=== PATIENT | female | born 1940 | race Caucasian/White ===

== ENCOUNTER → 2017-01-28 | Outpatient (CLI) | payer MEDICARE, BC | LOC: MAMMO 08:53 | DX: Z12.31 Encounter for screening mammogram for malignant neoplasm of breast (principal) | CPT/HCPCS: G0202 ==

== ENCOUNTER → 2021-12-20 | Outpatient (CLI) | payer MEDICARE, BC | LOC: RAD 08:12 → MAMMO 08:30 | DX: Z78.0 Asymptomatic menopausal state (principal); Z13.820 Encounter for screening for osteoporosis; M85.80 Other specified disorders of bone density and structure, unspecified site; M81.0 Age-related osteoporosis without current pathological fracture ==

== ENCOUNTER 2024-04-06 07:19 | Emergency (ER) | payer MEDICARE, BC ==
[~2024-04-06] VITALS: Ht 147.3 cm; Wt 75.9 kg
[~2024-04-06 07:19] MED LIST: ACETAMINOPHEN-H1 TA2 PO; HCTZ 25MG25 MG PO; HYDROCHLOROTH12.5 M1 PO; LISINOPRIL10 MG PO; NAPROXEN500 MG PO; VERAPAMIL240 MG PO
[2024-04-06] MEDS ORDERED: DULOXETINE20 MG PO (07:42)
[2024-04-06] MEDS ORDERED: POTASSIUM CHLO20 ME4 PO (07:43)
[2024-04-06] MEDS ORDERED: FUROSEMIDE20 MG PO (07:43)
[2024-04-06] MEDS ORDERED: PRAVASTATIN SOD20 MG PO (07:43)
[2024-04-06] MEDS ORDERED: FLUTICASON0.05 MG/Ac NS (07:43)
[2024-04-06] MEDS ORDERED: PRILOSEC 20MG20 MG PO (07:44)
[2024-04-06 08:13] LABS: BASO # 0.03 K/mm3 (0.02-0.10); EOS # 0.06 K/mm3 (0.04-0.40); EOS % 0.6 % (1.0-5.0); HEMATOCRIT 47.1 % (37.0-47.0); HEMOGLOBIN 15.9 g/dL (12.5-16.0); LYMPH# 0.91 K/mm3 (1.50-4.00); MEAN CELL VOLUME 89 fl (78-100); MEAN CORPUSCULAR HEMOGLOBIN 30 pg (27-31); MEAN CORPUSCULAR HGB CONC 34 g/dL (33-37); MEAN PLATELET VOLUME 10.1 fl (7.4-10.4); MONO # 0.63 K/mm3 (0.20-0.80); NEU # 8.78 K/mm3 (1.40-6.50); PLATELET COUNT 201 K/mm3 (130-400); RED BLOOD COUNT 5.27 M/mm3 (4.10-5.30); RED CELL DISTRIBUTION WIDTH 12.8 % (11.5-14.5); WHITE BLOOD COUNT 10.5 K/mm3 (4.8-10.8)
[2024-04-06 08:18] LABS: ALBUMIN 4.4 g/dL (3.4-4.8); CALCIUM 10.7 mg/dL (8.3-10.5)
[2024-04-06 08:23] LABS: TOTAL BILIRUBIN 1.2 mg/dL (0.2-1.2)
[2024-04-06 08:36] LABS: TROPONIN-I 0.044 ng/mL (0.00-0.033)
[2024-04-06] MEDS ORDERED: Iodixanol-320 100 ML BOTTLE IV ONE (08:40)
[2024-04-06] MEDS ORDERED: NS 1,000 ML IV SCH (08:45)
[2024-04-06] MEDS ORDERED: fentaNYL 100 MCG/2 ML VIAL IV ONE (08:45)
[2024-04-06 09:47] LABS: PH-URINE 5.5 (5.0 - 8.0); URINE APPEARANCE CLEAR (CLEAR); URINE BILIRUBIN NEGATIVE (NEGATIVE); URINE BLOOD NEGATIVE (NEGATIVE); URINE COLOR YELLOW (YELLOW); URINE GLUCOSE NEGATIVE (NEGATIVE); URINE KETONE NEGATIVE (NEGATIVE); URINE LEUKOCYTE ESTERASE NEGATIVE (NEGATIVE); URINE NITRATE NEGATIVE (NEGATIVE); URINE PROTEIN(semi-quant) NEGATIVE (NEGATIVE)
[2024-04-06] MEDS ORDERED: cefTRIAXone 1 G in Water For Injection,Sterile 10 ML IV ONE (11:15)
[2024-04-06 11:40] VITALS: BP 127/79
== END 2024-04-06 11:40 | disposition short-term general hospital (02) ==
LOC: ED 07:19
PROVIDERS: Nurse Practitioner Family
DX: K37 Unspecified appendicitis (principal); I48.91 Unspecified atrial fibrillation; A41.9 Sepsis, unspecified organism
CPT/HCPCS: J0696; J3010; J7030; Q9967

== ENCOUNTER 2024-05-26 10:27 | Outpatient (RCR) | payer MEDICARE, BC ==
[~2024-05-26 10:27] MED LIST changes: +DULOXETINE20 MG PO; +FLUTICASON0.05 MG/Ac NS; +FUROSEMIDE20 MG PO; +POTASSIUM CHLO20 ME4 PO; +PRAVASTATIN SOD20 MG PO; +PRILOSEC 20MG20 MG PO
[2024-05-27] MEDS ORDERED: AMIODARONE200 MG PO (13:18)
[2024-05-27] MEDS ORDERED: ELIQUIS2.5 MG PO (13:18)
[2024-05-27] MEDS ORDERED: TORSEMIDE20 M1 PO (13:35)
[2024-05-27] MEDS ORDERED: PANTOPRAZOLE SO40 MG PO (13:36)
[2024-05-27] MEDS ORDERED: PREGABALIN50 MG PO (13:37)
[2024-06-03] MEDS ORDERED: WARFARIN SODIU2.5 MG PO (09:30)
[2024-06-03] MEDS ORDERED: ZOFRAN ODT4 MG PO (09:32)
[2024-06-03] MEDS ORDERED: ZYRTEC10 M3 PO (09:33)
[2024-06-03] MEDS ORDERED: VOLTAREN ARTHRI20 GM TP (09:34)
[2024-06-03] MEDS ORDERED: MIRALAX17 GM PO (09:37)
[2024-06-03] MEDS ORDERED: EMERGEN-C 500500 MG PO (09:40)
== END 2024-06-03 | disposition home or self-care (01) ==
LOC: PT
DX: K65.1 Peritoneal abscess (principal); J18.9 Pneumonia, unspecified organism; J96.00 Acute respiratory failure, unspecified whether with hypoxia or hypercapnia; Z98.890 Other specified postprocedural states

== ENCOUNTER 2024-05-27 12:14 | Emergency (ER) | payer MEDICARE, BC ==
[~2024-05-27] VITALS: Ht 144.8 cm; Wt 71.4 kg
[2024-05-27 13:02] LABS: BASO # 0.02 K/mm3 (0.02-0.10); EOS # 0.02 K/mm3 (0.04-0.40); EOS % 0.1 % (1.0-5.0); HEMATOCRIT 39.8 % (37.0-47.0); HEMOGLOBIN 12.1 g/dL (12.5-16.0); LYMPH# 1.34 K/mm3 (1.50-4.00); MEAN CELL VOLUME 96 fl (78-100); MEAN CORPUSCULAR HEMOGLOBIN 29 pg (27-31); MEAN CORPUSCULAR HGB CONC 30 g/dL (33-37); MEAN PLATELET VOLUME 11.2 fl (7.4-10.4); MONO # 0.72 K/mm3 (0.20-0.80); PLATELET COUNT 198 K/mm3 (130-400); RED BLOOD COUNT 4.16 M/mm3 (4.10-5.30); WHITE BLOOD COUNT 17.3 K/mm3 (4.8-10.8)
[2024-05-27 13:14] LABS: ALBUMIN 4.1 g/dL (3.4-4.8); TOTAL PROTEIN 7.6 g/dL (6.2-8.1)
[2024-05-27 13:16] LABS: CALCIUM 9.7 mg/dL (8.3-10.5); TOTAL BILIRUBIN 0.9 mg/dL (0.2-1.2)
[2024-05-27] MEDS ORDERED: ELIQUIS2.5 MG PO (13:18)
[2024-05-27] MEDS ORDERED: AMIODARONE200 MG PO (13:18)
[2024-05-27] MEDS ORDERED: Cefepime 2 G in Water For Injection,Sterile 20 ML IV ONE (13:30)
[2024-05-27] MEDS ORDERED: NS 1,000 ML IV SCH ×2 (13:30→14:15)
[2024-05-27 13:31] LABS: TROPONIN-I 0.067 ng/mL (0.00-0.033)
[2024-05-27] MEDS ORDERED: TORSEMIDE20 M1 PO (13:35)
[2024-05-27] MEDS ORDERED: PANTOPRAZOLE SO40 MG PO (13:36)
[2024-05-27] MEDS ORDERED: PREGABALIN50 MG PO (13:37)
[2024-05-27 13:52] LABS: URINE APPEARANCE SLIGHTLY CLOUDY (CLEAR); URINE COLOR YELLOW (YELLOW)
[2024-05-27 13:53] LABS: PH-URINE 5.5 (5.0 - 8.0); URINE BILIRUBIN NEGATIVE (NEGATIVE); URINE BLOOD NEGATIVE (NEGATIVE); URINE GLUCOSE NEGATIVE (NEGATIVE); URINE KETONE NEGATIVE (NEGATIVE); URINE LEUKOCYTE ESTERASE 1+ (NEGATIVE); URINE NITRATE NEGATIVE (NEGATIVE); URINE PROTEIN(semi-quant) TRACE (NEGATIVE); URINE WBC 16-30 /hpf (0-3)
[2024-05-27] MEDS ORDERED: Acetaminophen 500 MG TAB PO ONE (14:00)
[2024-05-27 17:00] VITALS: BP 109/97
== END 2024-05-27 17:10 | disposition short-term general hospital (02) ==
LOC: ED 12:14
PROVIDERS: Family Medicine
DX: A41.9 Sepsis, unspecified organism (principal); R65.20 Severe sepsis without septic shock; N17.9 Acute kidney failure, unspecified; N39.0 Urinary tract infection, site not specified; R51.9 Headache, unspecified; R10.32 Left lower quadrant pain; I48.91 Unspecified atrial fibrillation; R21 Rash and other nonspecific skin eruption; Z79.01 Long term (current) use of anticoagulants; Z88.0 Allergy status to penicillin; Z88.1 Allergy status to other antibiotic agents; Z92.89 Personal history of other medical treatment
CPT/HCPCS: J0692; J3370; J7030; J7050

== ENCOUNTER → 2024-06-03 | Outpatient (RCR) | payer MEDICARE, BC ==
[2024-06-02 10:20] VITALS: BP 169/85
[2024-06-02 11:15] VITALS: BP 158/84
--- NOTE | 2024-06-02 11:16 | NUR ---
PT HERE FOR OP IV ANTIBIOTICS X2 DAYS. WILL GO HOME TODAY WITH INT IN RT FOREARM. COVERED INT WITH ELASTINET. LEFT FACILITY PER WC WITH FAMILY
[~2024-06-03] VITALS: Ht 147.3 cm; Wt 71.4 kg
[~2024-06-03] MED LIST changes: +AMIODARONE200 MG PO; +ELIQUIS2.5 MG PO; +EMERGEN-C 500500 MG PO; +ERTAPENEM 0.5 GM IV SCH; +MIRALAX17 GM PO; +PANTOPRAZOLE SO40 MG PO; +PREGABALIN50 MG PO; +SODIUM CHLORIDE IV SCH; +TORSEMIDE20 M1 PO; +VOLTAREN ARTHRI20 GM TP; +WARFARIN SODIU2.5 MG PO; +ZOFRAN ODT4 MG PO; +ZYRTEC10 M3 PO; +[UNRECOGNIZED DRUG - OTHER] IV SCH
[2024-06-03 09:13] VITALS: BP 129/80
--- NOTE | 2024-06-03 09:27 | NUR ---
PT ARRIVED AMBULATORY WITH [facility] TODAY FOR OP IV ANTIBIOTIC INFUSION. HER INT IN RT FOREARM WAS LEAKING WHEN FLUSHED WITH NS PRIOR TO INFUSION. DC'D INT. STARTED #22 INT IN LEFT AC ON FIRST ATTEMPT. INFUSION STARTED.
[2024-06-03 10:03] VITALS: BP 130/80
--- NOTE | 2024-06-03 10:04 | NUR ---
PT JEM INFUSION WITHOUT ANY PROBLEMS. LEFT HOSPT AMBULATORY WITH [facility]ALKER.FAMILY DRIVING PT HOME
== END | disposition home or self-care (01) ==
LOC: AMSURD
DX: R78.81 Bacteremia (principal); A49.8 Other bacterial infections of unspecified site; Z16.12 Extended spectrum beta lactamase (ESBL) resistance
CPT/HCPCS: J1335

== ENCOUNTER 2024-06-07 10:55 | Emergency (ER) | payer MEDICARE, BC ==
[~2024-06-07] VITALS: Ht 144.8 cm; Wt 74.5 kg
[2024-06-07 12:17] VITALS: BP 152/69
== END 2024-06-07 12:20 | disposition home or self-care (01) ==
LOC: ED 10:55
DX: M25.562 Pain in left knee (principal); M53.3 Sacrococcygeal disorders, not elsewhere classified; R79.1 Abnormal coagulation profile; Z79.01 Long term (current) use of anticoagulants; W18.30XA Fall on same level, unspecified, initial encounter; Y92.238 Other place in hospital as the place of occurrence of the external cause

== ENCOUNTER → 2024-06-07 | Outpatient (CLI) | payer MEDICARE, BC ==
[~2024-06-07] MED LIST changes: -ERTAPENEM 0.5 GM IV SCH; -SODIUM CHLORIDE IV SCH; -[UNRECOGNIZED DRUG - OTHER] IV SCH
[2024-06-08 15:31] LABS: PROTHROMBIN TIME 29.2 SECONDS (9.0-12.0)
== END ==
LOC: LAB 10:35
PROVIDERS: Family Medicine
DX: I48.91 Unspecified atrial fibrillation (principal); Z79.01 Long term (current) use of anticoagulants

== ENCOUNTER 2024-09-06 18:46 | Emergency (ER) | payer MEDICARE, BC ==
[~2024-09-06] VITALS: Ht 144.8 cm; Wt 75.5 kg
[2024-09-06] MEDS ORDERED: Albuterol/Ipratropium 3 MG-0.5 MG/3 ML Neb Soln IH ONE (19:15)
[2024-09-06] MEDS ORDERED: methylPREDNISolone Sod Succ 125 MG/2 ML VIAL IV ONE (19:15)
[2024-09-06 19:27] LABS: BASO # 0.04 K/mm3 (0.02-0.10); EOS # 0.01 K/mm3 (0.04-0.40); EOS % 0.1 % (1.0-5.0); HEMATOCRIT 53.6 % (37.0-47.0); HEMOGLOBIN 16.3 g/dL (12.5-16.0); LYMPH# 0.67 K/mm3 (1.50-4.00); MEAN CELL VOLUME 92 fl (78-100); MEAN CORPUSCULAR HEMOGLOBIN 28 pg (27-31); MEAN CORPUSCULAR HGB CONC 30 g/dL (33-37); MONO # 0.76 K/mm3 (0.20-0.80); NEU # 7.53 K/mm3 (1.40-6.50); PLATELET COUNT 133 K/mm3 (130-400); RED BLOOD COUNT 5.83 M/mm3 (4.10-5.30); RED CELL DISTRIBUTION WIDTH 14.8 % (11.5-14.5); WHITE BLOOD COUNT 9.1 K/mm3 (4.8-10.8)
[2024-09-06 19:34] LABS: ALBUMIN 4.5 g/dL (3.4-4.8)
[2024-09-06 19:35] LABS: CALCIUM 9.8 mg/dL (8.3-10.5)
[2024-09-06 19:37] LABS: TOTAL PROTEIN 8.4 g/dL (6.2-8.1)
[2024-09-06 19:38] LABS: TOTAL BILIRUBIN 0.8 mg/dL (0.2-1.2)
[2024-09-06 19:52] LABS: TROPONIN-I 0.074 ng/mL (0.00-0.033)
[2024-09-06] MEDS ORDERED: Furosemide 40 MG/4 ML VIAL IV ONE ×2 (20:00→21:15)
[2024-09-06 20:25] LABS: PROTHROMBIN TIME 17.8 SECONDS (9.0-12.0)
[2024-09-06 23:00] VITALS: BP 127/62
== END 2024-09-06 23:00 | disposition short-term general hospital (02) ==
LOC: ED 18:46
PROVIDERS: Physician Assistant
DX: I50.9 Heart failure, unspecified (principal); I48.91 Unspecified atrial fibrillation; J96.91 Respiratory failure, unspecified with hypoxia; R79.89 Other specified abnormal findings of blood chemistry; Z79.01 Long term (current) use of anticoagulants; Z95.0 Presence of cardiac pacemaker
CPT/HCPCS: A4618; J1940; J2919

== ENCOUNTER → 2024-09-27 | Outpatient (REF) | payer MEDICARE, BC ==
[2024-09-27 16:47] LABS: CALCIUM 8.9 mg/dL (8.3-10.5)
== END ==
LOC: LAB 16:21
PROVIDERS: Family Medicine
DX: N18.30 Chronic kidney disease, stage 3 unspecified (principal); I50.33 Acute on chronic diastolic (congestive) heart failure